=== PATIENT | male | born 1995 | race Two or more races ===

== ENCOUNTER 2021-10-10 20:28 | Emergency (ER) | payer SELFPAY ==
[~2021-10-10] VITALS: Ht 170.2 cm; Wt 60.3 kg
[2021-10-10 21:04] VITALS: BP 135/66
[2021-10-10] MEDS ORDERED: TRAMADOL HCL 50 MG TABLET ONE (21:42)
[2021-10-10] MEDS: TRAMADOL HCL 50 MG TABLET PO ONE (21:43)
[2021-10-10] MEDS ORDERED: LIDOCAINE 1%-EPI 1:100,000 20 ML VIAL ONE (21:50)
[2021-10-10] MEDS ORDERED: CEPHALEXIN MONOHYDRATE 500 MG CAPSULE PO ONE (22:32)
[2021-10-10] MEDS ORDERED: TDAP [DIPH/PERTUSSIS/TET] 0.5 ML VIAL IM ONE (22:33)
[2021-10-10] MEDS ORDERED: IBUP-1955 PO (22:37)
[2021-10-10] MEDS ORDERED: CEPH500T PO (22:37)
[2021-10-10] MEDS ORDERED: HYDR-4303 PO (22:37)
[2021-10-10] MEDS: CEPHALEXIN MONOHYDRATE 500 MG CAPSULE PO ONE (22:42)
[2021-10-10] MEDS: TDAP [DIPH/PERTUSSIS/TET] 0.5 ML VIAL IM ONE (22:42)
== END 2021-10-10 22:58 | disposition home or self-care (01) ==
LOC: ER 20:33
DX: S60.552A Superficial foreign body of left hand, initial encounter (principal); X58.XXXA Exposure to other specified factors, initial encounter; Y93.89 Activity, other specified; Y92.89 Other specified places as the place of occurrence of the external cause; Y99.8 Other external cause status
CPT/HCPCS: 73130; 90471; 90715; 99284; J3490